=== PATIENT | male | born 1995 | race African-American/Black ===

== ENCOUNTER 2017-03-19 08:50 | Emergency (ER) | payer OTHER ==
[~2017-03-19] VITALS: Ht 188 cm; Wt 85.3 kg
[2017-03-19] MEDS ORDERED: NAPR500T2 PO (09:03)
[2017-03-19] MEDS ORDERED: ROBA500T PO (09:03)
[2017-03-19] MEDS ORDERED: LIDOCAINE 1% MDV 20ML VIAL SC ONE (10:15)
--- NOTE | 2017-03-19 10:30 | REP ---
RIGHT INDEX FINGER SERIES: Four views. HISTORY: Trauma. FINDINGS: There is soft-tissue swelling and irregularity at the distal phalanx of the right index finger, particularly along its ulnar aspect. There is one focus of opaque debris along the skin here. No soft tissue gas is seen. No fractures noted. On lateral radiograph, there is an old volar plate avulsion fracture at the base of the middle phalanx of the index finger. IMPRESSION: No acute fracture seen. Soft tissue swelling adjacent to the distal phalanx. Old volar plate fracture PIP joint. Signed by Jamison Basilio MD 03/19/2017 12:48 P
[2017-03-19] MEDS ORDERED: NEOSPORIN OINT 0.9 GM PKT (FLOOR STOCK) As Ordered ONE (11:02)
[2017-03-19 11:04] VITALS: BP 132/88
[2017-03-19] MEDS ORDERED: KEFL500C7 PO (11:04)
[2017-03-19] MEDS ORDERED: IBUP600T26 PO (11:04)
== END 2017-03-19 11:11 | disposition home or self-care (01) ==
LOC: EDBD 08:50 → M ED 09:23
DX: S61.411A Laceration without foreign body of right hand, initial encounter (principal); S61.210A Laceration without foreign body of right index finger without damage to nail, initial encounter; W22.8XXA Striking against or struck by other objects, initial encounter; Y92.89 Other specified places as the place of occurrence of the external cause; Y93.89 Activity, other specified; Y99.1 Military activity